=== PATIENT | female | born 1950 | race Caucasian/White ===

== ENCOUNTER 2025-06-19 11:43 | Outpatient (CLI) | payer BC ==
[~2025-06-19 11:43] MED LIST: Iopamidol 300 61% 100 ML VIAL FS ONE
[2025-06-19 14:57] LABS: Estimated GFR - POC 78.0
== END 2025-06-19 11:44 | disposition home or self-care (01) ==
LOC: CSHCT 11:43
PROVIDERS: ATTEND Internal Medicine Gastroenterology
DX: K21.9 Gastro-esophageal reflux disease without esophagitis (principal); Z86.0100 Personal history of colon polyps, unspecified; R10.9 Unspecified abdominal pain; Z86.19 Personal history of other infectious and parasitic diseases; M41.9 Scoliosis, unspecified; K44.9 Diaphragmatic hernia without obstruction or gangrene; Z90.49 Acquired absence of other specified parts of digestive tract; K31.89 Other diseases of stomach and duodenum; K59.00 Constipation, unspecified
CPT/HCPCS: 74177; 82565

== ENCOUNTER 2025-07-24 12:28 | Outpatient (CLI) | payer BC ==
[2025-07-24 13:16] LABS: #Basophils 0.05 10x3/uL (0.0-0.2); #Eosinophils 0.22 10x3/uL (0.0-0.5); #Monocytes 0.81 10x3/uL (0.0-1.1); #Neutrophils 5.63 10x3/uL (1.5-8.4); %Basophils 0.6 % (0.0-2.0); %Eosinophils 2.5 % (0.0-6.0); %Lymphocytes 22.8 % (18.0-47.0); %Monocytes 9.3 % (0.0-10.0); %Neutrophils 64.5 % (40.0-75.0); Hematocrit 41.6 % (34.9-44.5); Hemoglobin 13.6 g/dL (12.0-15.5); Mean Corpuscular Hemoglobin 29.8 pg (27.0-33.0); Mean Corpuscular Volume 91.2 fL (81.6-98.3); Platelet Count 330 10x3/uL (150-450); Red Blood Cell (RBC) Count 4.56 10x6/uL (3.90-5.03); White Blood Cell (WBC) Count 8.73 10x3/uL (3.5-10.5)
[2025-07-24 13:32] LABS: Anion Gap 12 mmol/L (10-20); BUN (Urea Nitrogen) 10 mg/dL (9.8-20.1); Calc. Creatinine Clearance 0 mL/min (70-130); Calcium 8.7 mg/dL (7.8-10.44); Carbon Dioxide 23 mmol/L (23-31); Chloride 108 mmol/L (98-107); Glucose 101 mg/dL (83-110); Potassium 4.1 mmol/L (3.5-5.1); Sodium 139 mmol/L (136-145)
== END 2025-07-24 12:29 | disposition home or self-care (01) ==
LOC: CSHLAB 12:28
PROVIDERS: ATTEND Specialist
DX: Z01.818 Encounter for other preprocedural examination (principal); K44.9 Diaphragmatic hernia without obstruction or gangrene
CPT/HCPCS: 71046; 80048; 85025; 93005; 93010

== ENCOUNTER 2025-07-30 06:07 | Inpatient (IN) | payer BC, MEDICARE ==
[2025-07-30] MEDS ORDERED: Acetaminophen 500 MG TAB ONE (06:11)
[2025-07-30] MEDS ORDERED: Ketorolac Tromethamine 30 MG (1 mL) VIAL ONE (06:11)
[2025-07-30] MEDS ORDERED: CEFAZOLIN 2 GM VIAL ONE (06:53)
[2025-07-30] MEDS ORDERED: Bupivacaine/Epinephrine 0.25% 30 ML VIAL ONE (06:53)
[2025-07-30] MEDS ORDERED: PROPOFOL 20 ML ONE (07:00)
[2025-07-30] MEDS ORDERED: Rocuronium Bromide 10 MG/ML (10ML VIAL) ONE (07:02)
[2025-07-30] MEDS ORDERED: Lidocaine 1% PF 5 ML VIAL ONE (07:02)
[2025-07-30] MEDS ORDERED: KETAMINE 100 MG/ML (5ML VIAL) ONE (07:25)
[2025-07-30] MEDS ORDERED: Glycopyrrolate 0.2 MG/ML 5 ML SYRINGE ONE (07:27)
[2025-07-30] MEDS ORDERED: diphenhydrAMINE 50 MG/ML VIAL ONE (07:33)
[2025-07-30] MEDS ORDERED: PHENYLEPHRINE-NS 100 MCG/ML 10 ML SYRINGE ONE (09:11)
[2025-07-30] MEDS ORDERED: SUGAMMADEX SODIUM 200 MG/2 ML VIAL ONE (11:36)
[2025-07-30] MEDS ORDERED: hydrALAZINE 20 MG/ML VIAL SLOW IVP PRN (13:46)
[2025-07-30] MEDS ORDERED: Ondansetron PF 4 MG/2 ML Vial IVP PRN (13:46)
[2025-07-30 13:56] VITALS: BMI 30.9
[2025-07-30 14:21] LABS: #Basophils 0.03 10x3/uL (0.0-0.2); #Eosinophils 0.15 10x3/uL (0.0-0.5); #Monocytes 0.39 10x3/uL (0.0-1.1); #Neutrophils 16.40 10x3/uL (1.5-8.4); %Basophils 0.2 % (0.0-2.0); %Eosinophils 0.8 % (0.0-6.0); %Lymphocytes 3.6 % (18.0-47.0); %Monocytes 2.2 % (0.0-10.0); %Neutrophils 92.8 % (40.0-75.0); Hematocrit 39.1 % (34.9-44.5); Hemoglobin 12.9 g/dL (12.0-15.5); Mean Corpuscular Hemoglobin 29.9 pg (27.0-33.0); Mean Corpuscular Volume 90.7 fL (81.6-98.3); Red Blood Cell (RBC) Count 4.31 10x6/uL (3.90-5.03); White Blood Cell (WBC) Count 17.68 10x3/uL (3.5-10.5)
[2025-07-30 14:24] LABS: Platelet Count 276 10x3/uL (150-450)
[2025-07-30] MEDS: D5 1/2 NS w/20 mEq KCL 1,000 ML IV SCH (15:14)
[2025-07-30] MEDS: Ketorolac Tromethamine 30 MG (1 mL) VIAL IVP SCH (15:15)
[2025-07-30] MEDS: Famotidine 20 MG TAB PO SCH (20:44)
[2025-07-30] MEDS: Famotidine/PF 20 mg/2ml Vial SLOW IVP SCH (20:44)
[2025-07-31 05:58] LABS: #Basophils Less than 0.03 10x3/uL (0.0-0.2); #Eosinophils Less than 0.03 10x3/uL (0.0-0.5); #Monocytes 1.10 10x3/uL (0.0-1.1); #Neutrophils 11.39 10x3/uL (1.5-8.4); %Basophils 0.1 % (0.0-2.0); %Eosinophils 0.1 % (0.0-6.0); %Lymphocytes 9.0 % (18.0-47.0); %Monocytes 8.0 % (0.0-10.0); %Neutrophils 82.5 % (40.0-75.0); Hematocrit 34.7 % (34.9-44.5); Hemoglobin 11.2 g/dL (12.0-15.5); Mean Corpuscular Hemoglobin 29.7 pg (27.0-33.0); Mean Corpuscular Volume 92.0 fL (81.6-98.3); Platelet Count 244 10x3/uL (150-450); Red Blood Cell (RBC) Count 3.77 10x6/uL (3.90-5.03); White Blood Cell (WBC) Count 13.79 10x3/uL (3.5-10.5)
[2025-07-31 06:20] LABS: Anion Gap 8 mmol/L (10-20); BUN (Urea Nitrogen) 9 mg/dL (9.8-20.1); Calc. Creatinine Clearance 99 mL/min (70-130); Calcium 8.4 mg/dL (7.8-10.44); Carbon Dioxide 24 mmol/L (23-31); Chloride 109 mmol/L (98-107); Glucose 138 mg/dL (83-110); Potassium 4.4 mmol/L (3.5-5.1); Sodium 137 mmol/L (136-145)
[2025-07-31] MEDS: D5 1/2 NS w/20 mEq KCL 1,000 ML IV SCH (08:44)
[2025-07-31] MEDS ORDERED: HYDROcodone/Acetaminophen 7.5/325 mg Tablet PO PRN (11:58)
[2025-07-31] MEDS ORDERED: Acetaminophen 325 MG TAB PO PRN (11:58)
[2025-07-31 16:26] VITALS: BP 114/65; TEMP 98.2
== END 2025-07-31 17:50 | disposition home or self-care (01) | DRG 328 ==
LOC: CSHSDC 06:07 → CSHTELE 13:42 → OBSVTOIN 13:46
PROVIDERS: ADMIT Specialist; ATTEND Specialist
PROC: 0BUT4JZ Supplement Diaphragm with Synthetic Substitute, Percutaneous Endoscopic Approach (ICD-10-PCS; principal; 2025-07-30)
PROC: 8E0W4CZ Robotic Assisted Procedure of Trunk Region, Percutaneous Endoscopic Approach (ICD-10-PCS; 2025-07-30)
DX: K44.9 Diaphragmatic hernia without obstruction or gangrene (principal); K21.9 Gastro-esophageal reflux disease without esophagitis; I10 Essential (primary) hypertension; M19.90 Unspecified osteoarthritis, unspecified site; G89.4 Chronic pain syndrome; H66.90 Otitis media, unspecified, unspecified ear; Z90.49 Acquired absence of other specified parts of digestive tract; Z90.710 Acquired absence of both cervix and uterus; Z98.890 Other specified postprocedural states; Z60.2 Problems related to living alone; Z90.721 Acquired absence of ovaries, unilateral; Z88.0 Allergy status to penicillin; Z88.1 Allergy status to other antibiotic agents
CPT/HCPCS: 36415; 80048; 85025; 86850; 86900; 86901; C1889; J1100; J1200; J1885; J2250; J2272; J2704; J3010; J3480; S2900